=== PATIENT | male | born 1990 | race Two or more races ===

== ENCOUNTER 2016-04-10 12:10 | Emergency (ER) | payer SELFPAY ==
[~2016-04-10] VITALS: Ht 170.2 cm; Wt 61.2 kg
[2016-04-10 12:17] VITALS: BP 115/68
[2016-04-10] MEDS ORDERED: IPRATROPIUM NEB FS 0.5 MG/2.5 ML AMPUL.NEB ONE (12:45)
[2016-04-10] MEDS ORDERED: ALBUTEROL FS 2.5 MG/3 ML VIAL.NEB ONE (12:45)
[2016-04-10] MEDS ORDERED: ACETAMINOPHEN ES 500 MG TABLET ONE (12:56)
[2016-04-10] MEDS ORDERED: ACETAMINOPHEN 325 MG TABLET PO ONE (13:00)
[2016-04-10] MEDS ORDERED: ALBUTEROL FS 2.5 MG/3 ML VIAL.NEB NEB ONE (13:00)
[2016-04-10] MEDS ORDERED: IPRATROPIUM NEB FS 0.5 MG/2.5 ML AMPUL.NEB NEB ONE (13:00)
== END 2016-04-10 13:51 | disposition home or self-care (01) ==
LOC: ER 12:15
DX: J45.909 Unspecified asthma, uncomplicated (principal); B34.9 Viral infection, unspecified
CPT/HCPCS: 94640; 99283; A4606; Z7610